=== PATIENT | male | born 1950 | race Caucasian/White ===

== ENCOUNTER → 2017-08-28 | Outpatient (CLI) | payer BC ==
[~2017-08-28] MED LIST: BP MEDICATION; CLN200 PO; GLC/500 PO; GLIP-197 PO; LISI-788 PO; METF1TAB53 PO; SERT50TA PO; SIMV20TA2 PO
--- NOTE | 2017-08-28 09:55 | DIAGNOSTIC IMAGING REPORT ---
RIGHT INGUINAL ULTRASOUND FOR HERNIA EVALUATION CLINICAL HISTORY: K40.91 Recurrent right inguinal hernia COMPARISON STUDY: No previous studies for comparison. FINDINGS: Ultrasonographic evaluation of the right inguinal region was performed. The study was performed without and with stress maneuvers. There is a small fat-containing right inguinal hernia induced by stress maneuvers. IMPRESSION: Small reducible fat-containing right inguinal hernia Electronically signed by: Misael Camp M.D. 08/28/2017 9:54 AM Dictated Date/Time: 08/28/2017 9:52 AM
== END | disposition home or self-care (01) ==
LOC: C.ULTR 09:15
PROVIDERS: ATTEND Surgery
DX: K40.91 Unilateral inguinal hernia, without obstruction or gangrene, recurrent (principal)

== ENCOUNTER 2017-09-13 04:58 | Day surgery (SDC) | payer BC ==
--- NOTE | 2017-08-28 08:37 | PAT Medication Instructions ---
Service Date Aug 28, 2017. Current Home Medication List Glipizide (Glipizide Er), 0.5 TAB PO BID Lisinopril/Hctz (Zestoretic 20MG/25MG), 1 TAB PO QAM Metformin Hcl (Glucophage Ext Rel), 1,000 MG PO BID Metformin Hcl (Glucophage), 500 MG PO DAILY AT NOON Sertraline (Zoloft), 1.5 TAB PO QPM Simvastatin (Zocor), 20 MG PO QPM Sulindac (Sulindac), 1 TAB PO BID Medication Instructions For Your Scheduled Surgery - Contact your surgeon for instructions for: Sulindac (Sulindac), 1 TAB PO BID - Hold the following medications 48 hours prior to surgery: Metformin Hcl (Glucophage Ext Rel), 1,000 MG PO BID Metformin Hcl (Glucophage), 500 MG PO DAILY AT NOON - Hold the following medications the morning of surgery: Glipizide (Glipizide Er), 0.5 TAB PO BID Lisinopril/Hctz (Zestoretic 20MG/25MG), 1 TAB PO QAM - Take the following medications as scheduled the night before surgery: Sertraline (Zoloft), 1.5 TAB PO QPM Simvastatin (Zocor), 20 MG PO QPM Glipizide (Glipizide Er), 0.5 TAB PO BID If you have any questions please call us at [phone] or [phone] or [phone]
--- NOTE | 2017-08-28 09:20 | DIAGNOSTIC IMAGING REPORT ---
CHEST 2 VIEWS ROUTINE CLINICAL HISTORY: Preoperative chest COMPARISON STUDY: No previous studies for comparison. FINDINGS: The cardiac and mediastinal contours are normal. There is no evidence of focal pulmonary consolidation. There is no evidence of failure. No pleural effusions are visualized.[ Degenerative changes are present within the dorsal spine. IMPRESSION: No active disease in the chest. Electronically signed by: Misael Camp M.D. 08/28/2017 9:19 AM Dictated Date/Time: 08/28/2017 9:19 AM
[2017-08-28 10:06] LABS: BASO % 0.1 %; BASO ABS # 0.01 K/uL (0-0.2); EOS % 1.2 %; EOS ABS # 0.08 K/uL (0-0.5); HEMATOCRIT 45.1 % (42-52); HEMOGLOBIN 15.1 g/dL (14.0-18.0); IG# 0.05 K/uL (0.00-0.02); LYMPH ABS # 1.74 K/uL (1.2-3.4); MEAN CELL VOLUME 97.4 fL (80-100); MEAN CORPUSCULAR HEMOGLOBIN 32.6 pg (25-34); MEAN CORPUSCULAR HGB CONC 33.5 g/dl (32-36); MEAN PLATELET VOLUME 10.9 fL (7.4-10.4); MONO % 8.1 %; MONO ABS # 0.54 K/uL (0.11-0.59); NEUT % 63.9 %; NEUT ABS # 4.28 K/uL (1.4-6.5); PLATELET COUNT 229 K/uL (130-400); RED CELL DISTRIBUTION WIDTH CV 12.7 % (11.5-14.5); RED CELL DISTRIBUTION WIDTH SD 45.4 fL (36.4-46.3)
[2017-08-28 10:17] LABS: CALCIUM 9.2 mg/dl (8.5-10.1); CREATININE 0.93 mg/dl (0.60-1.40); POTASSIUM 4.1 mmol/L (3.5-5.1)
[~2017-09-13] VITALS: Ht 180.3 cm; Wt 98.0 kg
[~2017-09-13 04:58] MED LIST changes: -BP MEDICATION
[2017-09-13 05:27] VITALS: BP 124/83; PULSE 68; TEMP 36.7; O2SAT 94; Ht 180.3 cm; Wt 98.0 kg
[2017-09-13] MEDS ORDERED: LACTATED RINGER'S 1000ML 1,000 ML IV SCH ×2 (06:00→08:29)
--- NOTE | 2017-09-13 06:26 | History & Physical Bridge Note ---
H&P Re-Evaluation Bridge Note: I have examined the patient, reviewed the History & Physical and in the interval since the performance of the History & Physical I have noted the following changes of clinical significance: No changes noted pt marked, family at bedside all questions answered
[2017-09-13] MEDS ORDERED: BACITRACIN 50000 UNIT VIAL ONE (06:30)
[2017-09-13] MEDS ORDERED: FENTANYL CITRATE INJ 50 MCG/1 ML 2 ML VIAL IV PRN (06:30)
[2017-09-13] MEDS ORDERED: EpHEDrine SULFATE INJ 50 MG/ML AMP IV PRN (06:30)
[2017-09-13] MEDS ORDERED: PROMETHAZINE HCL INJ 12.5 MG in SODIUM CHLORIDE 0.9% 50ML 50 ML IV PRN (06:30)
[2017-09-13] MEDS ORDERED: ONDANSETRON INJ 2 MG/ML 2 ML VIAL IV PRN ×2 (06:30→08:30)
[2017-09-13] MEDS ORDERED: HYDROmorphone INJ 1 MG/ML SYR IV PRN (06:30)
[2017-09-13] MEDS ORDERED: ATROPINE SULFATE 0.1 MG/ML 5ML SYR IV PRN (06:30)
[2017-09-13] MEDS ORDERED: BUPIVACAINE 0.5 % 5 MG/1 ML MPF 30ML VIAL ONE (06:30)
[2017-09-13] MEDS ORDERED: DEXAMETHASONE SOD INJ 4 MG/ML VIAL ONE (06:53)
[2017-09-13] MEDS ORDERED: PROPOFOL IV EMULSION 10 MG/ML 20 ML VIAL IV ONE (06:53)
[2017-09-13] MEDS ORDERED: LIDOCAINE HCL 2% 2 ML VIAL (20MG/ML) ONE (06:53)
[2017-09-13] MEDS ORDERED: GLYCOPYRROLATE INJ 0.2 MG/ML VIAL ONE ×2 (06:53→07:39)
[2017-09-13] MEDS ORDERED: NEOSTIGMINE METHYLSULFATE 5 MG/5 ML SYR ONE (06:53)
[2017-09-13] MEDS ORDERED: ONDANSETRON INJ 2 MG/ML 2 ML VIAL ONE (06:53)
[2017-09-13] MEDS ORDERED: FENTANYL CITRATE INJ 50 MCG/1 ML 2 ML VIAL ONE (06:54)
[2017-09-13] MEDS ORDERED: MIDAZOLAM HCL 1 MG/ML 2ML VIAL ONE (06:54)
[2017-09-13] MEDS ORDERED: SODIUM CHLORIDE 0.9% INJ 10 ML VIAL ONE (07:39)
[2017-09-13] MEDS ORDERED: CEFAZOLIN SOD 1 GM VIAL ONE (07:39)
[2017-09-13] MEDS ORDERED: LARYING-O-JET KIT (LTA) ONE (07:39)
--- NOTE | 2017-09-13 08:22 | [facility] Operative Report ---
Operative Report Operative Date Sep 13, 2017. Pre-Operative Diagnosis Recurrent right inguinal hernia Post-Operative Diagnosis Same indirect Procedure(s) Performed Laparoscopic Recurrent Right Indirect Inguinal Hernia Repair with marlex Mesh Surgeon Dr Herrera Video Game Creator Surgeon(s) Bryan Field PA-C Estimated Blood Loss 5ml Findings direct recurrence lipoma cord Specimens CS#1 cathed urine for culture and sensitivity A. Incarcerated fat on right indirect hernia Description of Procedure OR Summary dictated Confirmation number [id number] I attest to the content of the Intraoperative Record and any orders documented therein. Any exceptions are noted below.
[2017-09-13] MEDS ORDERED: OXYC-57 PO (08:26)
--- NOTE | 2017-09-13 08:28 | Discharge Instructions ---
Discharge Instructions Date of Service Sep 13, 2017. Visit Reason for Visit: Recurrent Right Inguinal Hernia, Type 2 Diabetic Discharge Discharge Diagnosis / Problem: hernia repair Discharge Goals Goal(s): Decrease discomfort Activity Recommendations Activity Limitations: as noted below Lifting Limitations: no more than 10 pounds Shower/Bathe: tomorrow Driving or Machine Use: 1 week Anesthesia . Post Anesthesia Instructions: If you have had General Anesthesia or IV Sedation: * Do not drive today. * Resume driving when surgeon permits. * Do not make important decisions or sign legal documents today. * Call surgeon for: 1. Temperature elevations greater than 101 degrees F. 2. Uncontrollable pain. 3. Excessive bleeding. 4. Persistent nausea and vomiting. 5. Medication intolerance (nausea, vomiting or rash). * For nausea and vomiting use only clear liquids such as: tea, soda, bouillon until nausea subsides, then gradually increase diet as tolerated. * If you have any concerns or questions, call your surgeon's office. If physician is unavailable and it is an emergency, call 911 or go to the nearest emergency room. . Instructions / Follow-Up Instructions / Follow-Up Dr. Herrera in 1 week, call [phone] for any questions or to schedule Diet Recommendations Recommended Home Diet: no limitations Procedures Procedures Performed: Laparoscopic Recurrent Right Indirect Inguinal Hernia Repair with marlex Mesh Pending Studies Studies pending at discharge: no Medical Emergencies . Who to Call and When: Medical Emergencies: If at any time you feel your situation is an emergency, please call 911 immediately. . Non-Emergent Contact Non-Emergency issues call your: Surgeon Call Non-Emergent contact if: you have a fever, temperature is above 101.5, your pain is not controlled, wound has increased pain, you have any medication questions . . "Provider Documentation" section prepared by Bryan Field. . [place] Drug Monitoring Program Search Results: no issues identified
[2017-09-13] MEDS ORDERED: ROCURONIUM BROMIDE 10 MG/ML 5 ML VIAL IV ONE (08:29)
[2017-09-13] MEDS ORDERED: MoRPHine SULFATE 2 MG/ML CARP IV PRN (08:30)
[2017-09-13] MEDS ORDERED: OXYCODONE/ACETAMINOPHEN 5-325 TAB PO PRN (08:30)
--- NOTE | 2017-09-13 08:45 | Anesthesiology Progress Note ---
Anesthesia Post Op Note Date & Time Sep 13, 2017 at 08:45 Vital Signs Pain Intensity: 0 Vital Signs Past 12 Hours Date Time Temp Pulse Resp B/P (MAP) Pulse Ox O2 Delivery O2 Flow Rate FiO2 09/13/17 08:30 69 12 141/88 98 Oxymask 10 09/13/17 08:20 76 14 129/91 98 Oxymask 10 09/13/17 08:14 37.2 84 12 147/93 96 Oxymask 10 09/13/17 05:27 36.7 68 20 124/83 (97) 94 Room Air Notes Mental Status: alert / awake / arousable, participated in evaluation Pt Amnestic to Procedure: Yes Nausea / Vomiting: adequately controlled Pain: adequately controlled Airway Patency, RR, SpO2: stable & adequate BP & HR: stable & adequate Hydration State: stable & adequate Anesthetic Complications: no major complications apparent
--- NOTE | 2017-09-13 08:53 | OPERATIVE REPORT ---
DATE OF OPERATION: 09/13/2017 PREOPERATIVE DIAGNOSIS: Right recurrent inguinal hernia. POSTOPERATIVE DIAGNOSIS: Right recurrent indirect inguinal hernia. PROCEDURE: Laparoscopic repair of right indirect inguinal hernia with Marlex mesh. SURGEON: Dr. Herrera. PHOTOCOPYING EQUIPMENT MECHANIC: William Field PA-C. OPERATION AND FINDINGS: SUMMARY: The patient was brought into the operating room theater. The abdomen was prepped with Betadine solution and properly draped. A Giordano catheter had been inserted. Systemic antibiotics was given. A small incision and made supraumbilically sufficient enough to place Veress needle followed by a 5 mm trocar after CO2 had been insufflated. Direct visualization with no injury was identified. The patient did have a very distended colon. We were well away from it. At this point, the patient was placed in Trendelenburg position slightly rotated to the left, we placed a 5 mm right flank and 5 mm left flank port with prior local analgesia 1% Xylocaine. These were at the level of the umbilicus just lateral to the rectus. At this point we then placed more Trendelenburg position. We incised the peritoneum. The patient had some dimpling going into what appeared to be the medial umbilical ligament. Were not sure if that was the hernia per se. There was no obvious large indirect defect although by ultrasound and clinically the patient had a recurrent hernia. We incised the peritoneum avoiding the inferior epigastric vessels all the way lateral to beyond the internal ring, re angulated and arcuated it. We then dissected the peritoneum down to the medial umbilical ligament and using blunt dissection, we were able then to free up the whole floor. What we identified that the patient had a recurrence fatty tissue in the indirect area coming inferior to the cord. We freed that up from the indirect ring and also freed up a lipoma of the cord which was quite extensive down into the canal. There was no real direct recurrence at the symphysis pubis. We exposed Miah's ligament above the conjoined tendon. I elected at this point to sacrifice the inferior epigastric vessels since this wanted to make a more secure closure of that internal ring. We then brought a sheet of Marlex mesh after I placed a plug, a piece if it, into the indirect canal using a tacker to attach it to the wall. We used Vicryl suture just to create a plug. The plug itself was approximately 1.5 cm in size. We then brought a sheet of Marlex mesh and placed it accordingly, stapled it onto Miah's ligament, symphysis pubis above the conjoined tendon, avoiding the inferior epigastric vessels as we had ligated them before and down towards the internal ring and avoided the triangle of doom. When we were done, we had pretty much the retroperitoneal dissected out down to the reflection, took the fatty tissue away from the indirect ring that there was no other fatty tissue going down into the canal. We then decreased the pneumoperitoneum down to level 7 and reperitonealized with clips the peritoneum completely exteriorizing the mesh from intraabdominal contents. Under direct visualization individual trocars were removed, last umbilical trocar. 0 Vicryl suture was used for the umbilical opening, abdomen with 4-0 Monocryl. Steri-Strips applied. The procedure was tolerated well by the patient. Estimated blood loss approximately 5 mL. The patient was taken to recovery room in good condition. I attest to the content of the Intraoperative Record and any orders documented therein. Any exception s are noted below.
[2017-09-13 09:00] VITALS: BP 142/81; PULSE 70; TEMP 36.7; O2SAT 95
[2017-09-13 09:30] VITALS: BP 142/81; PULSE 84; O2SAT 97
[2017-09-13 09:58] VITALS: BP 132/76; PULSE 74; TEMP 37.1; O2SAT 94
== END 2017-09-13 10:00 | disposition home or self-care (01) ==
LOC: C.ACU 04:58
PROVIDERS: ATTEND Surgery
DX: K40.91 Unilateral inguinal hernia, without obstruction or gangrene, recurrent (principal); I10 Essential (primary) hypertension; E78.5 Hyperlipidemia, unspecified; G47.33 Obstructive sleep apnea (adult) (pediatric); E11.9 Type 2 diabetes mellitus without complications; M19.90 Unspecified osteoarthritis, unspecified site; F41.9 Anxiety disorder, unspecified; F32.9 Major depressive disorder, single episode, unspecified; E66.9 Obesity, unspecified; Z68.30 Body mass index [BMI] 30.0-30.9, adult; Z79.84 Long term (current) use of oral hypoglycemic drugs; Z79.899 Other long term (current) drug therapy; Z87.891 Personal history of nicotine dependence